=== PATIENT | male | born 1990 | race Caucasian/White ===

== ENCOUNTER 2017-04-03 07:51 | Day surgery (SDC) | payer BC ==
[~2017-04-03] VITALS: Ht 188 cm; Wt 79.5 kg
[2017-04-03] VITALS (7 sets, daily range): BP systolic 99–114; BP diastolic 56–83; PULSE 69–87; RESP 16–20; TEMP 97.9–98.2; O2SAT 95–97
[~2017-04-03 07:51] MED LIST: BUPR150CR PO; ZOFR4TAB3 SL
[2017-04-03] MEDS ORDERED: SODIUM CHLOR 0.9% 1000 ML IV SCH (08:00)
[2017-04-03] MEDS ORDERED: LIDOCAINE HCL 1% 20 ML VIAL ONE (09:09)
[2017-04-03] MEDS ORDERED: MIDAZOLAM HCL 2 MG/2 ML VIAL ONE (09:28)
--- NOTE | 2017-04-03 09:54 | PD.RAD ---
Post CT Procedure Prog Note Pre Procedure Diagnosis: (1) Hepatitis Post Procedure Diagnosis: Procedure Date: Apr 03, 2017 Supervising Radiologist: Al Wilson Proceduralist/Assist: lorraine rodriguez Estimated blood loss: none Anesthesia: Conscious Sedation Plan of Activity Patient to Unit: ROPU Patient Condition: Good See PACS Report for procedural detail/treatment Al Wilson MD Apr 03, 2017 09:54
--- NOTE | 2017-04-03 16:05 | RADRPT ---
EXAM DATE/TIME: 04/03/2017 09:35 [place] COMPARISON: No previous studies available for comparison. INDICATIONS : Hepatitis C. SEDATION TIME: 10 minutes BIOPSY SITE: Right MEDICATION(S): 1.) 4 mg midazolam (Versed) IV DEVICE(S): 1.) 18 gauge Temno core biopsy needle MEDICAL HISTORY : Hepatitis C. SURGICAL HISTORY : None. ENCOUNTER: Initial ACUITY: 1 day PAIN SCORE: 0/10 LOCATION: Right A total of one core specimen(s) were obtained and sent to the laboratory for pathologic evaluation. PROCEDURE: 1. CT guided liver biopsy. 2. Conscious sedation with continuous EKG and oximetry monitoring. 3. EKG and oximetry remained stable throughout the procedure. Prior to the procedure informed consent was obtained. Any appropriate prior imaging studies were rev iewed. Using automated exposure control and adjustment of the mA and/or kV according to patient size, radiat ion dose was kept as low as reasonably achievable to obtain optimal diagnostic quality images. DICOM format image data is available electronically for review and comparison. The site was prepped in a sterile fashion. Full sterile technique was used, including cap, mask, louann rile gloves and gown and a large sterile sheet. Hand hygiene and 2% chlorhexidine and/or betadine/al cohol prep was utilized per protocol for cutaneous antisepsis. The skin and subcutaneous tissues wer e infiltrated with local anesthetic solution. With CT guidance the previously identified target was localized. Biopsy was performed using the presc ribed needle as above. Adequate hemostasis was obtained with compression at the puncture site. Follow-up CT scan reveals no hemorrhage. The patient tolerated the procedure well and there were no complications. The patient was returned to the Radiology Outpatient Unit in stable condition. CONCLUSION: Uncomplicated CT guided biopsy. Al Wilson MD on April 03, 2017 at 16:02 Board Certified Radiologist. This report was verified electronically.
== END 2017-04-03 13:45 | disposition home or self-care (01) ==
LOC: HRAD 07:51 → HRIP 07:52 → HRAD 13:45
PROVIDERS: ATTEND Physician Assistant Medical
DX: B18.2 Chronic viral hepatitis C (principal); Z98.84 Bariatric surgery status
CPT/HCPCS: 47000; 77012; 88307; 88313; J2250; J7030